=== PATIENT | female | born 1970 | race Caucasian/White ===

== ENCOUNTER 2017-05-27 17:24 | Emergency (ER) | payer OTHER ==
[~2017-05-27] VITALS: Ht 167.6 cm; Wt 72.0 kg
[~2017-05-27 17:24] MED LIST: LEVO.075 PO; OMEP20TA39 PO; PERC5TAB12 PO; ZOFR8TAB4 PO
[2017-05-27 17:47] VITALS: BP 119/114; PULSE 90; RESP 18; O2SAT 99
[2017-05-27] MEDS ORDERED: LEVO.1 PO (17:47)
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
[2017-05-27 19:10] VITALS: BP 166/100; PULSE 79; RESP 17; O2SAT 98
[2017-05-27] MEDS ORDERED: BACL20TA PO (19:39)
[2017-05-27] MEDS ORDERED: TRAM50 PO (19:39)
== END 2017-05-27 20:08 | disposition home or self-care (01) ==
LOC: NEPD 17:24
DX: S16.1XXA Strain of muscle, fascia and tendon at neck level, initial encounter (principal); R51 Headache; M50.30 Other cervical disc degeneration, unspecified cervical region; E03.9 Hypothyroidism, unspecified; K21.9 Gastro-esophageal reflux disease without esophagitis; V43.52XA Car driver injured in collision with other type car in traffic accident, initial encounter; Z88.2 Allergy status to sulfonamides; Z88.8 Allergy status to other drugs, medicaments and biological substances; Z79.899 Other long term (current) drug therapy
CPT/HCPCS: 70450; 72125; 72170; 99284